=== PATIENT | female | born 1945 | race Caucasian/White ===

== ENCOUNTER 2016-09-22 09:47 | Emergency (ER) | payer MEDICARE, OTHER ==
[2016-09-22 11:14] LABS: HEMOGLOBIN 12.6 gm/dl (12.3-15.3); RED BLOOD COUNT 4.18 M/UL (4.00-5.10); WHITE BLOOD COUNT 8.9 K/UL (4.5-11.0)
== END 2016-09-22 14:20 | disposition home or self-care (01) ==
LOC: ER1 09:47
PROVIDERS: Emergency Medicine
DX: L02.612 Cutaneous abscess of left foot (principal)
CPT/HCPCS: 36415; 73660; 80048; 85025; 85610; 85730; 86140; 87070; 87205; 96361; 96365; 96367; 96375; 99283; J1200; J2405; J2543; J2920; J7050

== ENCOUNTER 2016-11-13 10:01 | Emergency (ER) | payer MEDICARE, OTHER ==
[2016-11-13 11:42] LABS: RED BLOOD COUNT 4.06 M/UL (4.00-5.10); WHITE BLOOD COUNT 10.8 K/UL (4.5-11.0)
== END 2016-11-13 14:40 | disposition home or self-care (01) ==
LOC: ER1 10:01
PROVIDERS: Emergency Medicine
DX: R10.30 Lower abdominal pain, unspecified (principal); I48.91 Unspecified atrial fibrillation; I25.10 Atherosclerotic heart disease of native coronary artery without angina pectoris; D64.9 Anemia, unspecified; Z88.0 Allergy status to penicillin; Z88.1 Allergy status to other antibiotic agents; Z88.6 Allergy status to analgesic agent; Z88.8 Allergy status to other drugs, medicaments and biological substances; Z79.82 Long term (current) use of aspirin; Z79.899 Other long term (current) drug therapy
CPT/HCPCS: 36415; 80053; 81001; 83605; 83690; 85025; 87040; 87077; 87086; 87186; 96365; 96375; 99283; J1956; J2270; J2405

== ENCOUNTER → 2016-12-11 | Outpatient (CLI) | payer MEDICARE, OTHER | LOC: KOH-I 16:12 | DX: M17.9 Osteoarthritis of knee, unspecified (principal); M25.861 Other specified joint disorders, right knee | CPT/HCPCS: 73564 ==